=== PATIENT | male | born 1945 | race Caucasian/White ===

== ENCOUNTER 2019-07-07 | Emergency (ER) | payer OTHER ==
[2019-07-07 17:05] LABS: URINE BILIRUBIN - DIPSTICK NEGATIVE (NEGATIVE); URINE BLOOD DIPSTICK MODERATE (NEGATIVE); URINE COLOR YELLOW; URINE GLUCOSE - DIPSTICK NEGATIVE (NEGATIVE); URINE KETONE 15 mg/dL (NEGATIVE); URINE LEUK ESTERASE LARGE (NEGATIVE); URINE NITRITE - DIPSTICK POSITIVE (Negative); URINE PH 6.5 (4.5-8.0); URINE PROTEIN - DIPSTICK 30 mg/dL (NEG-TRACE); URINE UROBILINOGEN - DIPSTICK 0.2 E.U./dL (0.2)
[2019-07-07 17:10] LABS: URINE BACTERIA MANY hpf; URINE RBC TNTC RBC/hpf (0-5); URINE SQUAMOUS EPITHELIAL CELL FEW EPI/hpf (0-FEW); URINE WBC TNTC WBC/hpf (0-5)
[2019-07-07] MEDS ORDERED: PYRIDIUM200 MG PO (17:35)
[2019-07-07] MEDS ORDERED: KEFLEX500 M1 PO (17:35)
[2019-07-07] MEDS ORDERED: PLAVIX75 MG PO (18:17)
[2019-07-07] MEDS ORDERED: LIPITOR20 M1 PO (18:17)
[2019-07-07] MEDS ORDERED: ZETIA10 MG PO (18:18)
== END 2019-07-07 17:40 | disposition home or self-care (01) | DRG 690 ==
DX: N39.0 Urinary tract infection, site not specified (principal); B96.20 Unspecified Escherichia coli [E. coli] as the cause of diseases classified elsewhere

== ENCOUNTER 2019-07-19 | Emergency (ER) | payer OTHER ==
[~2019-07-19] MED LIST: KEFLEX500 M1 PO; LIPITOR20 M1 PO; PLAVIX75 MG PO; PYRIDIUM200 MG PO; ZETIA10 MG PO
[2019-07-19 17:09] LABS: URINE BILIRUBIN - DIPSTICK NEGATIVE (NEGATIVE); URINE BLOOD DIPSTICK LARGE (NEGATIVE); URINE COLOR YELLOW; URINE GLUCOSE - DIPSTICK NEGATIVE (NEGATIVE); URINE KETONE NEGATIVE (NEGATIVE); URINE PROTEIN - DIPSTICK 30 mg/dL (NEG-TRACE); URINE SPECIFIC GRAVITY 1.025; URINE UROBILINOGEN - DIPSTICK 0.2 E.U./dL (0.2)
[2019-07-19 17:10] LABS: URINE LEUK ESTERASE LARGE (NEGATIVE); URINE NITRITE - DIPSTICK POSITIVE (Negative)
[2019-07-19] MEDS ORDERED: CIPROFLOXACIN500 M1 PO (17:13)
[2019-07-19 17:21] LABS: URINE BACTERIA MANY hpf; URINE WBC 50-100 WBC/hpf (0-5)
== END 2019-07-19 17:59 | disposition home or self-care (01) | DRG 690 ==
PROVIDERS: Family Medicine
DX: N39.0 Urinary tract infection, site not specified (principal); B96.20 Unspecified Escherichia coli [E. coli] as the cause of diseases classified elsewhere